=== PATIENT | female | born 1965 ===

== ENCOUNTER 2021-04-04 12:52 | Outpatient (REF) | payer BC, SELFPAY | END 2021-04-04 12:53 | disposition home or self-care (01) | LOC: HO.LAB 12:52 | PROVIDERS: Visit Provider Internal Medicine | DX: Z13.89 Encounter for screening for other disorder (principal) ==

== ENCOUNTER → 2021-04-25 11:46 | Outpatient (BNVA) | payer BC, SELFPAY | PROVIDERS: Visit Provider Internal Medicine ==